=== PATIENT | female | born 1965 | race Caucasian/White ===

== ENCOUNTER 2018-12-28 14:51 | Emergency (ER) | payer MEDICAID ==
--- NOTE | 2018-12-28 15:32 | ED Physician Chart ---
ED Chief Complaint/HPI - Patient Information Date Seen:: 12/28/18 Time Seen:: 15:00 Chief Complaint:: Chest Pain History of Present Illness:: onset x 2 days of intermittent exertional localized middle anterior chest pain; pt denies dyspnea, N/V, diaphoresis, Abd. Pain, cough, fever, chills, hemoptysis , or urinary s/s Allergies:: Allergies Allergy/AdvReac Type Severity Reaction Status Date / Time No Known Allergies Allergy Verified 12/28/18 15:03 Vitals:: Vital Signs - 8 hr 12/28/18 15:04 Temp 98.6 F HR 77 RR 16 BP 116/78 O2 Sat % 97 Historian:: Patient Review:: Nurse's Note Reviewed, Old Chart Reviewed ED Review of Systems - Review of Systems General/Constitutional: No fever, No chills, No weight loss, No weakness, No diaphoresis, No edema, No loss of appetite Skin: No skin lesions, No rash, No bruising Head: No headache, No light-headedness Eyes: No loss of vision, No pain, No diplopia ENT: No earache, No nasal drainage, No sore throat, No tinnitus Neck: No neck pain, No swelling, No thyromegaly, No stiffness, No mass noted Cardio Vascular: No chest pain, No palpitations, No PND, No orthopnea, No edema Pulmonary: No SOB, No cough, No sputum, No wheezing GI: No nausea, No vomiting, No diarrhea, No pain, No melena, No hematochezia, No constipation, No hematemesis G/U: No dysuria, No frequency, No hematuria, No nacturia 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: No vaginal discharge, No abnormal vaginal bleed, No contraction Musculoskeletal: No bone or joint pain, No back pain, No muscle pain Endocrine: No polyuria, No polydipsia Psychiatric: Prior psych history, Depression, Anxiety, No suicidal ideation, No homicidal ideation, No auditory hallucination, No visual hallucination Hematopoietic: No bruising, No lymphadenopathy Allergic/Immuno: No urticaria, No angioedema Neurological: No syncope, No focal symptoms, No weakness, No paresthesia, No headache, No seizure, No dizziness, No confusion, No vertigo ED Past Medical History - Past Medical History Obtainable: Yes Past Medical History: HTN, Dyslipidemia Family History: Heart disease, HTN Social History: Non Smoker, No Alcohol, No Drug Use Surgical History: None Psychiatricy History: Depression Medication: Reviewed ED Physical Exam - Physical Examination General/Constitutional: Awake, Well-developed, well-nourished, Alert, No distress, GCS 15, Non-toxic appearing, Ambulatory Head: Atraumatic Eyes: Lids, conjuctiva normal, PERRL, EOMI Skin: Nl inspection, No rash, No skin lesions, No ecchymosis, Well hydrated, No lymphadenopathy ENMT: External ears, nose nl, TM canals nl, Nasal exam nl, Lips, teeth, gums nl , Oropharynx nl, Tonsils nl Neck: Nontender, Full ROM w/o pain, No JVD, No nuchal rigidity, No bruit, No mass, No stridor Other Neck comments:: supple; no meningeal signs; no cervical tenderness; no bruits Respiratory: Nl effort/Exclusion, Clear to Auscultation, No Wheeze/Rhonchi/Rales Cardio Vascular: RRR, No murmur, gallop, rubs, NL S1 S2, Carotid/Femoral/Distal pulses equal bilaterally GI: No tenderness/rebounding/guarding, No organomegaly, No hernia, Normal BS's, Nondistended, No mass/bruits, No McBurney tenderness, Rectum exam nl Other GI comments:: no pulsatile masses : No CVA tenderness Extremities: No tenderness or effusion, Full ROM, normal strength in all extremities, No edema, Normal digits & nails Neuro/Psych: Alert/oriented, DTR's symmetric, Normal sensory exam, Normal motor strength, Judgement/insight normal, Mood normal, Normal gait, No focal deficits Other Neuro/Psych comments:: no focal signs Misc: Normal back, No paraspinal tenderness ED Labs/Radiology/EKG Results - Lab Results Comments:: Reviewed - Radiology Results Comments:: NAD - EKG Interpretations EKG Time:: 15:16 Rate & Rhythm: 62; NSR Comments:: non-specific st-t changes ED Septic Shock - . Is Septic Shock (SBP<90, OR Lactate>4 mmol\L) present?: No - <6hrs of presentation: Vital Signs: Vital Signs - 8 hr 12/28/ 15:04 Temp 98.6 F HR 77 RR 16 BP 116/78 O2 Sat % 97 ED Reassessment (Disposition) - Reassessment Reassessment:: pt refused hospital admission; pt chose to sign out AMA; pt is asymptomatic upon discharge/AMA Reassessment Condition:: Improved - Diagnosis Diagnosis:: Chest Pain; Hyperlipidemia; Angina Pectoris - Aftercare/Follow up Instructions Aftercare/Follow-Up Instructions:: Counseled pt regarding lab results/diagnosis & need follow up, Refer to Discharge Instructions, Counseled pt & family regarding lab results/diagnosis & need follow up - Patient Disposition Discharge/Transfer:: Against Medical Advice Condition at Disposition:: Stable, Improved (X-Rays Instructions; RTER prn if existing s/s reoccur and/or get worse and/or any other new s/s occur; ACIs given for all above Dx; Refer to Lining Presser/Psychiatrist/[employer] Pin Press Operator [facility]; F/U with PMD Today or prn; RTER prn if concerned)
[2018-12-28 15:33] LABS: % MONOCYTES 6.2 % (2.0-10.0); % NEUTROPHILS 80.8 % (40.0-80.0); EOSINOPHILE ABSOLUTE 0.1 Th/cmm (0.1-0.4); HEMATOCRIT 40.9 % (41.0-60); HEMOGLOBIN 13.5 gm/dL (12-16); LYMPHOCYTE ABSOLUTE 1.1 Th/cmm (1.5-3.0); MEAN CORPUSCULAR HEMOGLOBIN 28.5 pg (27.0-31.0); MEAN CORPUSCULAR HGB CONC 33.1 pg (28.0-36.0); MONOCYTE ABSOLUTE 0.6 Th/cmm (0.3-1.0); NEUTROPHILE ABSOLUTE 7.6 Th/cmm (1.8-8.0); PLATELET COUNT 233 Th/cmm (150-400); RED BLOOD COUNT 4.76 Mil/cmm (3.80-5.10); WHITE BLOOD COUNT 9.4 Th/cmm (4.8-10.8)
[2018-12-28 15:47] LABS: INR 0.96 (0.5-1.4)
[2018-12-28] MEDS ORDERED: Aspirin 81mg Chewable Tab ONE (15:57)
[2018-12-28] MEDS: Aspirin 81mg Chewable Tab PO STA ×2 (15:58→16:00)
[2018-12-28 16:02] LABS: ALB/GLOB RATIO 2.1 (1.0-1.8); ALBUMIN 4.6 gm/dL (3.7-5.3); ALKALINE PHOSPHATASE 67 U/L (34-104); ANION GAP 10.9 (7.0-16.0); BILIRUBIN,TOTAL 0.5 mg/dL (0.3-1.0); BUN - UREA NITROGEN 10 mg/dL (7-25); CALCIUM SERUM 9.7 mg/dL (8.6-10.3); CARBON DIOXIDE 28.8 mEq/L (21.0-31.0); CHLORIDE 100 mEq/L (98-107); CHOLESTEROL 270 mg/dL (<200); CREATININE - SERUM 0.7 mg/dL (0.6-1.2); CREATININE KINASE 72 U/L (30-223); GFR AFRICAN-AMERICAN > 60.0 ml/min (>90); GFR NON AFRICAN-AMERICAN > 60.0 ml/min; GLUCOSE 115 mg/dL (70-105); HDL -HIGH DENSITY LIPOPROTEIN 78 mg/dL (23-92); POTASSIUM SERUM 3.7 mEq/L (3.5-5.1); SGOT 12 U/L (13-39); SGPT/ALT 9 U/L (7-52); SODIUM SERUM 136 mEq/L (136-145); TOTAL PROTEIN,SERUM 6.8 gm/dL (6.0-8.3); TRIGLYCERIDES 131 mg/dL (<150)
--- NOTE | 2018-12-29 10:17 | Diagnostic Imaging Report ---
Portable chest x-ray History: Pain Allowing for portable technique the heart size is normal. No focal pulmonary parenchymal processes. No hilar or mediastinal abnormalities. Impression: No acute abnormalities.
== END 2018-12-28 17:33 | disposition left against medical advice (07) ==
LOC: ER 14:51
DX: I20.9 Angina pectoris, unspecified (principal); E78.5 Hyperlipidemia, unspecified; R07.89 Other chest pain; I10 Essential (primary) hypertension; F32.9 Major depressive disorder, single episode, unspecified
CPT/HCPCS: 36415-UA; 71045-TC; 80053-TC; 80061-TC; 82550-TC; 83880-TC; 84484-TC; 84703-TC; 85025-TC; 85610-TC; 93005; 94760